=== PATIENT | male | born 1950 | race African-American/Black ===

== ENCOUNTER 2020-02-12 19:36 | Emergency (ER) | payer MEDICARE | END 2020-02-12 20:20 | disposition home or self-care (01) | LOC: MADERS 19:36 | DX: T16.1XXA Foreign body in right ear, initial encounter (principal); E78.00 Pure hypercholesterolemia, unspecified; E11.9 Type 2 diabetes mellitus without complications; I10 Essential (primary) hypertension; Z79.899 Other long term (current) drug therapy | CPT/HCPCS: 69200 ==